=== PATIENT | male | born 1970 | race Caucasian/White ===

== ENCOUNTER → 2021-01-14 | Outpatient (CLI) | payer BC ==
--- NOTE | 2021-01-14 18:03 | P.STRESS ---
- Stress Test Note Stress Test Results/Findings: Exam Performed: stress test Exam Date: 01/14/21 Reason for Exam: Abnormal resting EKG Height: 6 ft 1 in Weight: 111.3 kg Protocol: Nirav Stage: IV Duration of Exercise: 11:02 Resting Heart Rate: 74 Resting Blood Pressure: 118/78 Maximum Achieved Heart Rate: 165 Maximum Achieved Blood Pressure: 172/71 85% PMHR: 144 100% PMHR: 169 METS: 12.1 Technologist Comment: Stress Test Results/Findings: Patient underwent exercise stress EKG with a Nirav protocol treadmill stress test. Patient exercised into Stage 3 for a total of 11 minutes reaching a total of 12.1 METS. Patient's maximum heart rate was 165 which represented 97 % age- predicted maximum heart rate. Stress EKG findings: At baseline patient's EKG showed normal sinus rhythm, normal axis, no significant ST or T-wave abnormalities. At peak exercise, EKG showed nonspecific 0.[address] depressions in the inferior lateral leads, rare PVCs.. Conclusions: 1. Normal EKG response to exercise without evidence of inducible ischemia. 2. Good exercise capacity.
== END ==
LOC: RADNMMAIN 10:30
PROVIDERS: ATTEND Internal Medicine
DX: I21.29 ST elevation (STEMI) myocardial infarction involving other sites (principal)
CPT/HCPCS: 93017